=== PATIENT | female | born 1990 | race Caucasian/White ===

== ENCOUNTER 2016-07-13 08:14 | Emergency (ER) | payer MEDICAID ==
[2016-07-13] MEDS ORDERED: ORPHENADRINE 60 MG/2 ML AMP ONE (09:54)
== END 2016-07-13 11:08 | disposition home or self-care (01) ==
LOC: ER 08:14
DX: S16.1XXA Strain of muscle, fascia and tendon at neck level, initial encounter (principal); S80.01XA Contusion of right knee, initial encounter; S83.411A Sprain of medial collateral ligament of right knee, initial encounter; M54.6 Pain in thoracic spine; V47.5XXA Car driver injured in collision with fixed or stationary object in traffic accident, initial encounter
CPT/HCPCS: 72050; 72072; 96372